=== PATIENT | female | born 1945 | race Caucasian/White ===

== ENCOUNTER 2025-08-12 16:24 | Emergency (ER) | payer MEDICARE, OTHER, SELFPAY ==
[2025-08-12] VITALS (9 sets, daily range): BP systolic 83–141; BP diastolic 40–65; BMI 19.1
--- NOTE | 2025-08-12 16:45 | ED.GENMED ---
History of Present Illness
General
Chief Complaint: Abdominal Symptoms
Time Seen by Provider: 08/12/25 16:30
Nursing documentation reviewed up to this point in time: agreed with
History of Present Illness
History of Present Illness:
80-year-old female presents to the ER for evaluation of abdominal pain, nausea vomiting and diarrhea which started last night. Patient states that she had pork for dinner and shortly thereafter developed severe abdominal pain. She reports to many
episodes of diarrhea and vomiting to count. She denies any blood in her stool. She reports that she had been feeling well prior to symptom onset. She denies any other complaints. Patient does have a history of dementia which may be influencing
her ability to provide accurate history. She also has significant prior medical history including stroke, A-fib, hypertension, COPD, urinary incontinence. In review of the medication and diagnosis list sent from her facility, she is not on any
long-term anticoagulation
Review of Systems
Review of Systems
Allergies reviewed?: Yes
Phy Exam
Physical Exam
Physical Exam:
Patient is awake, alert, pale, elderly, appears in no acute distress, head is NCAT, PERRL, EOMI mucous membranes moist, conjunctiva pink, heart regular rate and rhythm without murmurs or ectopy, lungs are clear to auscultation without wheezes rales
or rhonchi, no JVD, abdomen is soft with diffuse pain on palpation, no palpable masses, extremities without edema, GCS is 15
Course
Orders/Labs/Results
Orders:
Orders
08/12/25 16:40
CT Abd/Pel (IV only)-DH only Urgent
Comment:
Reason For Exam: abdominal pain, v/d
Cardiac Monitoring- Treatment ONCE
0.9% Sodium Chloride 1000 ml [Nss] 1,000 ml IV BOLUS
08/12/25 16:42
Electrocardiogram (*1) Stat
Reason for Study: Abdominal Pain
EKG- Treatment ONCE
08/12/25 16:48
Complete Blood Count/With Diff Urgent
Comprehensive Metabolic Panel Urgent
Lactic Acid Urgent
Lipase Urgent
08/12/25 17:58
Urinalysis Reflex To Culture Urgent
Date Specimen was Collected: 08/12/25
Time Specimen was Collected: 17:56
Urine Microscopic Reflex Cult Urgent
Urine Culture Urgent
SERJIO Source: U
Specimen Description:
Date Specimen was Collected: 08/12/25
Time Specimen was Collected: 17:56
Abnormal Lab Results
08/12/25 08/12/25
16:48 17:58
MCHC 32.7 L g/dL
(33.0-37.0)
Absolute Neuts (auto) 7.8 H 10^3/uL
(1.4-6.5)
Absolute Lymphs (auto) 0.4 L 10^3/uL
(1.2-3.4)
Neutrophils % 90.7 H %
(42.2-75.2)
Lymphocytes % 4.2 L %
(20.5-51.1)
BUN 24 H mg/dl
(7-17)
Creatinine 1.4 H mg/dL
(0.6-1.0)
Glucose 104 H mg/dl
(70-99)
Lipase 762 H U/L
(23-300)
Urine Bilirubin 3+ A
(Negative)
Leukocyte Esterase Rfl 1+ A
(Negative)
Urine RBC 3-6 A /HPF
(0-2)
Urine Bacteria (Reflex) Many A
(Negative)
Urine Albumin (Reflex) 2+ A
(Neg - Trace)
08/12/25 16:48
08/12/25 16:48
Vital Signs
Initial and Last Documented VS:
Initial Vital Signs
Temp Pulse Resp BP Pulse Ox
97.6 F 70 12 112/41 97
08/12/25 16:27 12/17/25 16:27 08/12/25 16:27 08/12/25 16:27 08/12/25 16:27
Last Documented Vital Signs
Temp Pulse Resp BP Pulse Ox
98.0 F 67 12 103/40 97
08/12/25 19:42 08/12/25 19:30 08/12/25 19:30 08/12/25 19:00 08/12/25 19:15
MDM/Problems Addressed
Differential Diagnosis Includes:
Differential diagnosis to consider but not limited to gastroenteritis, gastritis, ischemic bowel, colitis, influenza, COVID along with other etiologies considered
Chronic conditions affecting care:
Advanced age, dementia
*Pulse Oximetry
SaO2: 99
Oxygen Mode of Delivery: Room air
Patient hypoxic: no
*EKG
Interpreted by ED Provider?: Yes (I independently viewed and interpreted twelve-lead EKG showing sinus rhythm with first-degree AV block, rate 70, normal axis, nonspecific T wave appearance without evidence for acute ischemia, no prior for
comparison)
*Consulting Marine Engineer Interpretation
Rate: normal (I independently viewed and interpreted rhythm strip showing sinus rhythm with first-degree AV block)
*Critical Care Note
Total Time (30-74mins, 75-104mins- exclusive of procedures): Not Applicable
Update Note
Update Note:
Will give IV fluids and check screening labs along with CAT scan given significant abdominal pain on palpation. Patient agrees with plan at current. Will reassess.
1933: I spoke with patient's son Sumit to review current condition. Patient is no longer having abdominal pain, reports feeling tired only. In process of p.o. trial. He expressed understanding of diagnosis of gastroenteritis. Will reassess for
possible discharge vs admit
2100: Patient has had no vomiting or diarrhea while in the emergency department. Vital signs stable.
0: Patient able to tolerate p.o. Will return back to her long-term care facility for continued supportive treatment
ED Attending Note
-
Portions of this chart may have been created with voice recognition software.� Occasional wrong word or��sound alike� substitutions may have occurred due to the inherent limitations of voice recognition software.
Discharge Plan
Departure
Patient Disposition: Home (Routine Discharge)
Date of Disposition: 08/12/25
Time of Disposition: 22:21
Patient with high blood pressure during this ER visit?: No
Discharge Problem:
Diarrhea
Instructions: Diarrhea in teens and adults, Abdominal Pain
Prescriptions:
No Action
acetaminophen [Tylenol] 325 mg Tablet
650 mg PO Q6HPRN PRN (Reason: mild pain)
ipratropium-albuterol [DuoNeb] 0.5 mg-3 mg(2.5 mg base)/3 mL Solution For Nebulization
3 ml INHALATION R Q6HPRN PRN (Reason: sob)
albuterol sulfate 2.5 mg /3 mL (0.083 %) Solution For Nebulization
2.5 mg INHALATION R Q4HPRN PRN (Reason: sob)
albuterol sulfate 1.25 mg/3 mL Solution For Nebulization
1.25 mg INHALATION R Q6HPRN PRN (Reason: sob)
naproxen 250 mg Tablet
250 mg PO BID
cyanocobalamin (vitamin B-12) 1,000 mcg Tablet
1,000 mcg PO DAILY
amlodipine [Norvasc] 5 mg Tablet
5 mg PO DAILY
omeprazole 40 mg Capsule,Delayed Release(Dr/Ec)
40 mg PO DAILY
aspirin 81 mg Tablet,Delayed Release (Dr/Ec)
81 mg PO DAILY
guaifenesin 100 mg/5 mL Liquid
300 mg PO Q6HPRN PRN (Reason: cough)
magnesium hydroxide [Milk of Magnesia] 400 mg/5 mL Suspension
2,400 mg PO [id number] PRN (Reason: constipation)
ascorbic acid (vitamin C) [Vitamin C] 500 mg Tablet
500 mg PO DAILY
bisacodyl [Dulcolax (bisacodyl)] 10 mg Suppository
10 mg MO DAILYPRN PRN (Reason: if no bm aftr mom)
simvastatin [Zocor] 20 mg Tablet
20 mg PO DAILY
Fleet Enema 19-7 gram/118 mL Enema
118 ml MO DAILYPRN PRN (Reason: if no bm aftr dulcolax)
gabapentin 100 mg Capsule
100 mg PO HS
hydroxychloroquine [Plaquenil] 200 mg Tablet
200 mg PO DAILY
fluticasone propionate [Flonase] 50 mcg/actuation [place],Suspension
1 spray INTRANASAL DAILY
metoprolol tartrate 25 mg Tablet
25 mg PO BID
levocetirizine 5 mg Tablet
5 mg PO HS
cholecalciferol (vitamin D3) [Vitamin D3] 125 mcg (5,000 unit) Tablet
125 mcg PO DAILY
albuterol sulfate [ProAir HFA] 90 mcg/actuation Hfa Aerosol Inhaler
2 puff INHALATION R Q6HPRN PRN (Reason: sob)
Referrals:
Abdi Alaniz MD [Family Provider]
Activity Restrictions/Additional Instructions:
Encourage fluids. Follow a bland diet until symptoms improved. Return to the ER for any concerns. Please follow-up with your primary care physician tomorrow for reevaluation and further care
Interventions
Interventions:
*General Assessment Last Done: 08/12/25 16:34
*Neglect/Abuse Screening Last Done: 08/12/25 16:37
*ED COVID-19 Vaccine History Last Done: 08/12/25 16:33
*ED Influenza Vaccine History Last Done: 08/12/25 16:33
[facility] Fall Risk Assessment Tool Last Done: 08/12/25 16:24
XQ-Ckdrbq-Ejdurrnfui Assessment Last Done: 08/12/25 16:39
Discharge Date and Time
Print Language: SWAZI
[2025-08-12 17:06] LABS: Hematocrit 41.3 % (37.0-47.0); Hemoglobin 13.5 g/dL (12.0-16.0); Mean Corp Hgb Conc. 32.7 g/dL (33.0-37.0); Mean Corpuscular Volume 94.3 fL (81.0-99.0); Nucleated Red Blood Cells % 0 %; Platelet Count 218 10^3/uL (130-400); Red Cell Dist. Width 13.3 % (11.5-14.5)
[2025-08-12 17:15] LABS: ALT (SGPT) 26 U/L (0-35); AST (SGOT) 31 U/L (14-36); Albumin 4.5 g/dl (3.5-5.0); Alkaline Phosphatase 89 U/L (38-126); Blood Urea Nitrogen 24 mg/dl (7-17); Calcium 9.4 mg/dl (8.4-10.2); Carbon Dioxide 24 mmol/L (22-30); Chloride 98 mmol/L (98-107); Estimated Creatinine Clearance 28 ml/min; Glucose 104 mg/dl (70-99); Lipase 762 U/L (23-300); Potassium 4.4 mmol/L (3.5-5.1); Sodium 135 mmol/L (135-145); Total Protein 7.8 g/dl (6.3-8.2); eGFR 38.03
[2025-08-12 18:04] LABS: Urine Character Slightly Cloudy (Clear)
[2025-08-12 18:21] LABS: Urine Squamous Cell >30 /LPF (Few)
[2025-08-12] MEDS: NSS 1000 IV (19:04)
[2025-08-13] VITALS: BP 123/46
== END 2025-08-13 01:26 | disposition home or self-care (01) ==
LOC: EMR 16:24
PROVIDERS: EMERGENCY PHYSICIAN Emergency Medicine; FAMILY PHYSICIAN Internal Medicine
DX: R19.7 Diarrhea, unspecified (principal); I44.0 Atrioventricular block, first degree; F03.90 Unspecified dementia, unspecified severity, without behavioral disturbance, psychotic disturbance, mood disturbance, and anxiety; I48.91 Unspecified atrial fibrillation; I10 Essential (primary) hypertension; J44.9 Chronic obstructive pulmonary disease, unspecified; R32 Unspecified urinary incontinence; Z79.82 Long term (current) use of aspirin; Z86.73 Personal history of transient ischemic attack (TIA), and cerebral infarction without residual deficits
CPT/HCPCS: 99284; 96360; 74177; 80053; 81003; 81015; 83605; 83690; 85025; 87086; 93005; Q9967